=== PATIENT | male | born 1995 | race Caucasian/White ===

== ENCOUNTER 2022-03-08 09:55 | Emergency (ER) | payer MEDICARE, MEDICAID, SELFPAY ==
[2022-03-08 09:57] VITALS: BP 126/66; PULSE 77; RESP 18; TEMP 36.8; O2SAT 98
--- NOTE | 2022-03-08 09:59 | XR_ITS ---
WS: [id number] Exam: XR chest 1V portable [id number] Date/Time of Exam: 03/08/2022 10:04 AM Reason For Exam: dyspnea/cough No priors. Findings: The lungs are clear and fully expanded. Costophrenic angles are sharp. No infiltrates. Bronchovascula r relief appears normal. Cardiac silhouette is unremarkable. Bony elements are intact. XR/XR chest 1V portable [id number] IMPRESSION: Unremarkable chest radiograph.
--- NOTE | 2022-03-08 09:59 | ECG_ITS ---
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 Measurements Intervals [place] Rate: 69 P: 51 IL: 175 QRS: 50 QRSD: 92 T: 16 QT: 385 QTc: 413 Interpretive Statements SINUS RHYTHM No previous ECG available for comparison Electronically Signed On 03-08-2022 22:01:21 BROKE HANDLER by Ana Rosa Colin M.D. [id number]
[2022-03-08 10:00] VITALS: BP 123/74; PULSE 68
--- NOTE | 2022-03-08 10:05 | ED_ITS ---
HPI - Syncope General: Chief Complaint: Syncope Stated Complaint: Syncope Time Seen by Provider: 03/08/22 09:58 Source: patient Mode of arrival: ambulatory History of Present Illness: 26-year-old male who presents to the emergency room after an episode of syncope. He had a witnessed syncopal episode he fell to the floor. And been standing for period time talking to someone had an aura of getting lightheaded and dizzy and fell he does not sound like he had a postictal phase he remembers senior it business analyst and nurse around him talking about the episode. He states he had similar episodes when he was younger. He is not on any prescription medications, he does take [id number]-xtrabld melatonin. MD complaint: loss of consciousness and collapsed Onset (ago): minute(s) Prodromal symptoms: lightheaded Witnessed: Yes - by Bystander Context: other (While standing) Injuries sustained associated with event: none Associated symptoms: Deny abdominal pain, chest pain, fever(s), headache(s), lightheadedness, nausea, short of breath, vertigo or weakness Treatments prior to arrival: none Review of Systems Const: Denies: fever(s), chills, fatigue or malaise ENMT: Denies: throat pain, ear or mastoid pain, nasal discharge or nasal congestion Card: Denies: chest pain, palpitations, irregular heart rhythm, edema or lightheadedness Resp: Denies: dyspnea, productive cough or non-productive cough GI: Denies: abdominal pain, nausea or vomiting : Denies: flank pain, difficulty urinating, dysuria, urinary frequency or urinary urgency Skin/Breast: Denies: rash or pruritus Neuro: Denies: headache(s) or vertigo PFS ED PFSH: Medical History (Updated 03/08/22 @ 11:45 by Stefano Santiago DO) No significant past medical history Surgical History (Updated 03/08/22 @ 10:09 by Stefano Santiago DO) No pertinent past surgical history Social History Smoking and tobacco status: never smoked Physical Exam Const: COMMON NORMALS: no acute distress GENERAL APPEARANCE: cooperative and comfortable ORIENTATION/CONSCIOUSNESS: Yes awake, Yes oriented to person, Yes oriented to place and Yes oriented to time HENMT: COMMON NORMALS: normocephalic, atraumatic, hearing grossly normal bilaterally, external ears normal, EAC's normal, TM's normal bilaterally, Normal nasal mucous membranes and turbinates present, moist oral mucous membranes and oropharynx normal HEAD & SCALP: normocephalic and atraumatic NOSE: Normal nasal mucous membranes and turbinates present EXTERNAL EAR: Yes external ears normal EXTERNAL AUDITORY CANAL: EAC's normal TYMPANIC MEMBRANE: TM's normal bilaterally Eye: COMMON NORMALS: Equal, round and reactive pupils present, EOMs intact bilaterally, conjunctivae normal and no scleral icterus CONJUNCTIVA: Yes conjunctivae normal PUPIL: Yes Equal, round and reactive pupils present Neck/C-Spine: COMMON NORMALS: full ROM, no lymphadenopathy, supple and no JVD Resp: COMMON NORMALS: normal respiratory effort, No retractions, No use of accessory muscles and clear to auscultation bilaterally AUSCULTATION: clear to auscultation bilaterally Cardio: COMMON NORMALS: no JVD, regular rate, regular rhythm and No murmurs present (Cardio) RATE: regular rate RHYTHM: regular rhythm GI: COMMON NORMALS: Soft to palpation and No hepatosplenomegaly present AUSCULTATION: Yes normoactive bowel sounds PALPATION: Yes Soft to palpation, No Tenderness to palpation present (GI), No Guarding due to palpation present (GI) and Yes No hepatosplenomegaly present Extremity: COMMON NORMALS: normal to inspection, capillary refill normal, no clubbing, cyanosis or edema, no calf tenderness and no pedal edema Neuro: SENSORIUM/ORIENTATION: Yes oriented to person, Yes oriented to place and Yes oriented to time Skin: COMMON NORMALS: no rashes or lesions noted GENERAL SKIN EXAM: no rashes or lesions noted Course Vital Signs: Vital signs: Vital Signs Temperature 98.3 F 03/08/22 09:57 Pulse Rate 65 03/08/22 11:36 Respiratory Rate 18 03/08/22 11:32 Blood Pressure 120/74 03/08/22 11:36 Pulse Oximetry 98 03/08/22 11:32 Oxygen Delivery Me thod 03/08/22 11:32 MDM - Syncope Medical Decision Making Syncopal episode after fluids patient management ambulating on the difficulty vital signs normal orthostatics normal discharge patient home we will set up outpatient echocardiogram follow-up with primary care return if has further problems. Medical Records I reviewed the patient's medical records. Lab Data I reviewed the patient's lab results. 03/08/22 09:45 03/08/22 09:45 Radiology Impressions Chest X-Ray 03/08/22 09:59 IMPRESSION: Unremarkable chest radiograph. Laboratory Results WBC 6.5 10^3/uL (4.0-10.0) 03/08/22 09:45 RBC 5.31 10^6/uL (4.1-5.3) H 03/08/22 09:45 Hgb 15.2 g/dL (11.7-16.6) 03/08/22 09:45 Hct 47.3 % (42.0-52.0) 03/08/22 09:45 MCV 89.1 fl (80-94) 03/08/22 09:45 MCH 28.6 pg (28.0-34.0) 03/08/22 09:45 MCHC 32.1 g/dL (30.0-36.0) 03/08/22 09:45 RDW 13.4 % (12.1-15.1) 03/08/22 09:45 Plt Count 174 10^3/cmm (130-400) 03/08/22 09:45 MPV 12.3 fL (7.4-10.4) H 03/08/22 09:45 Neut % (Auto) 61.3 % 03/08/22 09:45 Lymph % (Auto) 26.1 % 03/08/22 09:45 Bill[place] % (Auto) 9.3 % 03/08/22 09:45 Eos % (Auto) 2.5 % 03/08/22 09:45 Baso % (Auto) 0.5 % 03/08/22 09:45 Neut # (Auto) 3.97 10^3/uL (1.8-7.7) 03/08/22 09:45 Lymph # (Auto) 1.7 10^3/uL (0.8-4.8) 03/08/22 09:45 [place] # (Auto) 0.6 10^3/uL (0.2-0.9) 03/08/22 09:45 Eos # (Auto) 0.2 10^3/uL (0.0-0.8) 03/08/22 09:45 Baso # (Auto) 0.0 10^3/uL (0.0-0.1) 03/08/22 09:45 Nucleated RBC % (auto) 0 % 03/08/22 09:45 Nucleated RBCs # 0.0 /100WBC 03/08/22 09:45 Sodium 138 mmol/L (136-145) 03/08/22 09:45 Potassium 4.7 mmol/L (3.5-5.1) 03/08/22 09:45 Chloride 102 mmol/L (98-107) 03/08/22 09:45 Carbon Dioxide 28 mmol/L (22-29) 03/08/22 09:45 Anion Gap 12.7 (5-19) 03/08/22 09:45 BUN 11 mg/dL (6-20) 03/08/22 09:45 Creatinine 0.8 mg/dL (0.7-1.2) 03/08/22 09:45 GFR Calculation 117.8 mL/min (90-130) 03/08/22 09:45 Glucose 110 mg/dL (65-115) 03/08/22 09:45 Calculated Osmolality 286 mOsm/kg (285-295) 03/08/22 09:45 Calcium 10.2 mg/dL (8.5-10.5) 03/08/22 09:45 Total Bilirubin 0.6 mg/dL (0.15-1.2) 03/08/22 09:45 AST 25 U/L (0-40) 03/08/22 09:45 ALT 26 U/L (0-41) 03/08/22 09:45 Alkaline Phosphatase 89 U/L (40-130) 03/08/22 09:45 Total Protein 7.8 g/dL (6.6-8.7) 03/08/22 09:45 Albumin 4.8 g/dL (3.5-5.2) 03/08/22 09:45 Globulin 3.0 g/dL (1.3-4.6) 03/08/22 09:45 Discharge Plan Discharge Patient Disposition: Home Clinical Impression: Syncopal episodes Condition: Stable Prescriptions: No Action No Known Home Medications methylprednisolone [Medrol (Naldo)] 4 mg tablets,dose pack See Rx Instructions PO PER PKG DIR Qty: 21 0RF Rx Instructions: PO PER PKG DIR Discharge Orders: Discharge ED (Routine); Ordered 03/08/22 Ordered By: Stefano Santiago Referrals: Margoth Simmons MD [Primary Care Provider] - Discharge Diet: Usual diet Discharge Activity: Increase activity as tolerated Patient Instructions: Opioid Safety, Pain Management Activity Restrictions/Additional Instructions: You were seen today for syncopal episode. Recommend that you follow-up with your primary care doctor within the next week. Your laboratory test done in the emergency room did not show any significant abnormalities. [facility] management will set up an outpatient echocardiogram. Coding Level of Care Code ED Trousseau Consultant for Chg Fwd Exam Comprehensive
[2022-03-08] MEDS: sodium chloride 0.9% 1,000 ML 999 ML IV (10:09)
[2022-03-08 10:40] LABS: Basophils % 0.5 %; Eosinophils # 0.2 10^3/uL (0.0-0.8); Eosinophils % 2.5 %; Hematocrit 47.3 % (42.0-52.0); Hemoglobin 15.2 g/dL (11.7-16.6); Lymphocytes # 1.7 10^3/uL (0.8-4.8); Lymphocytes % 26.1 %; Mean Corpuscular HGB Conc 32.1 g/dL (30.0-36.0); Mean Corpuscular Hemoglobin 28.6 pg (28.0-34.0); Mean Corpuscular Volume 89.1 fl (80-94); Mean Platelet Volume 12.3 fL (7.4-10.4); Monocytes # 0.6 10^3/uL (0.2-0.9); Monocytes % 9.3 %; Neutrophils # 3.97 10^3/uL (1.8-7.7); Neutrophils % 61.3 %; Nucleated Red Blood Cells % 0 %; Platelet Count 174 10^3/cmm (130-400); Red Blood Count 5.31 10^6/uL (4.1-5.3); Red Cell Distribution Width 13.4 % (12.1-15.1); White Blood Count 6.5 10^3/uL (4.0-10.0)
[2022-03-08 10:54] LABS: Alanine Aminotransferase 26 U/L (0-41); Albumin Level 4.8 g/dL (3.5-5.2); Alkaline Phosphatase 89 U/L (40-130); Anion Gap 12.7 (5-19); Aspartate Amino Transferase 25 U/L (0-40); Blood Urea Nitrogen 11 mg/dL (6-20); Calcium 10.2 mg/dL (8.5-10.5); Carbon Dioxide 28 mmol/L (22-29); Chloride 102 mmol/L (98-107); Glomerular Filtration Rate 117.8 mL/min (90-130); Glucose 110 mg/dL (65-115); Osmolality Calculated 286 mOsm/kg (285-295); Potassium 4.7 mmol/L (3.5-5.1); Sodium 138 mmol/L (136-145); Total Bilirubin 0.6 mg/dL (0.15-1.2); Total Protein 7.8 g/dL (6.6-8.7)
[2022-03-08 11:32] VITALS: BP 120/84; PULSE 68; RESP 18; O2SAT 98
[2022-03-08 11:35] VITALS: BP 114/83; PULSE 73
[2022-03-08 11:36] VITALS: BP 120/74; PULSE 65
--- NOTE | 2022-03-11 09:43 | DCPLANNER ---
Addendum entered by Kelly Robin 04/24/22 15:46: Patient had an echo scheduled - patient did attend appointment Addendum entered by Kelly Robin 03/11/22 13:52: Patients mother called case folder back, she told case folder that patient sees a primary care physician at [facility]. branch operation evaluation manager faxed a signed order to centralized scheduling, who will call patient with appointment information. Original Note: branch operation evaluation manager had message to schedule an outpatient echocardiogram. Patient does not have a primary care physician listed in his chart. branch operation evaluation manager called phone number [phone] - unable to speak with patient at this time, a voicemail was left for patient to return case operator phone call. branch operation evaluation manager is unable to schedule the echo due to not having a primary care physician.
== END 2022-03-08 12:16 | disposition home or self-care (01) ==
PROVIDERS: Emergency Provider Family Medicine; PCP Pediatrics Adolescent Medicine
DX: R55 Syncope and collapse (principal)
CPT/HCPCS: 71045; 80053; 85025; 93005; 96360; 99285; J7030

== ENCOUNTER 2022-04-15 14:53 | Outpatient (CLI) | payer MEDICARE, MEDICAID, SELFPAY ==
--- NOTE | 2022-04-15 15:07 | USCV_ITS ---
Brian Painter Age: 26 Gender: M : 1995 Exam Date: 04/15/2022 15:38 Ordering Phys: Stefano Santiago DO Technologist: Neal Rodriguez Exam Location: [facility] Indication: CHEST PAIN BP: 120 / 74 HR: 68 Rhythm: Sinus Technical Quality: Adequate MEASUREMENTS (Male / Female) Normal Values 2D ECHO LV Diastolic Diameter PLAX 5.4 cm 4.2 - 5.9 / 3.9 - 5.3 cm LV Systolic Diameter PLAX 3.3 cm IVS Diastolic Thickness 0.7 cm 0.6 - 1.0 / 0.6 - 0.9 cm IVS Systolic Thickness 1.1 cm LVPW Diastolic Thickness 1.2 cm 0.6 - 1.0 / 0.6 - 0.9 cm LVPW Systolic Thickness 2.0 cm LVOT Diameter 2.0 cm LV Ejection Fraction 2D Teich 68.4 % LV Ejection Fraction MOD 2C 65.3 % LV Ejection Fraction 2C AL 65.1 % LA Diameter 3.5 cm LA Width 4.1 cm LA Height 3.8 cm RA Width 3.5 cm RA Height 4.2 cm Aorta at Sinotubular Diameter 2.1 cm IVC Diameter 2.0 cm M-MODE Aortic Annulus Diameter 3.1 cm LA Ao Ratio MM 1.1 MV E Point Septal Separation 0.4 cm DOPPLER AV Peak Velocity 129.0 cm/s LVOT Peak Velocity 90.0 cm/s AV Area Cont Eq vti 1.9 cm squared AV Area Cont Eq pk 2.2 cm squared MV Peak Velocity 105.0 cm/s MV Area PHT 5.4 cm squared Mitral E to A Ratio 1.9 MV E' Velocity 46.0 cm/s Mitral E to MV E' Ratio 5.6 Mitral E to LV E' Lateral Ratio 4.9 Mitral E to LV E' Septal Ratio 6.4 Right Atrial Pressure 3.0 mmHg PV Peak Velocity 110.0 cm/s RV Acceleration Time 0.2 s RV Ejection Time 0.3 s RV AcT/ET 0.5 FINDINGS Left Ventricle Normal left ventricular size, systolic function and wall thickness, with no regional wall motion abnormalities. Normal left ventricular wall thickness. Normal diastolic filling pattern. Left ventricular ejection fraction is estimated at 60 %. Right Ventricle The right ventricle is normal in size and function. Right Atrium The right atrium is normal in size. Left Atrium The left atrium is normal in size. Mitral Valve Structurally normal mitral valve without significant stenosis or prolapse. There is no mitral regurgitation. Aortic Valve Structurally normal aortic valve without significant sclerosis or stenosis. There is no aortic regurgitation. Tricuspid Valve Structurally normal tricuspid valve without significant stenosis or regurgitation. Pulmonary artery systolic pressure is normal. Pulmonic Valve Structurally normal pulmonic valve without significant stenosis. There is no pulmonic regurgitation. Pericardium Normal pericardium without effusion. Aorta Normal ascending aorta dimension. IVC The inferior vena cava appears normal. CONCLUSIONS Normal transthoracic echocardiogram. There are no prior echocardiogram studies to compare. Dr. Kobe Dobson MD (Electronically Signed) Final Date: 15 April 2022 20:22 S
== END 2022-04-15 14:54 | disposition home or self-care (01) ==
LOC: RAD 15:02
PROVIDERS: PCP Pediatrics Adolescent Medicine; Visit Provider Family Medicine
DX: R07.9 Chest pain, unspecified (principal)
CPT/HCPCS: 93306

== ENCOUNTER → 2023-10-27 16:48 | Outpatient (BNVA) | payer MEDICARE, MEDICAID, SELFPAY | PROVIDERS: PCP Pediatrics Adolescent Medicine; Visit Provider Family Medicine | DX: S69.92XA Unspecified injury of left wrist, hand and finger(s), initial encounter (principal); X58.XXXA Exposure to other specified factors, initial encounter; R52 Pain, unspecified | CPT/HCPCS: 73110 ==

== ENCOUNTER 2024-11-25 20:27 | Inpatient (IN) | payer MEDICARE, MEDICAID, SELFPAY ==
[2024-11-25 20:28] VITALS: BP 142/82; PULSE 97; RESP 18; TEMP 37.2; O2SAT 93; BMI 38.0
--- OUTSIDE RECORDS SUMMARY | 2024-11-25 20:38 | XMS_ITS | Encounter Summary ---
Author Organization [facility] Address [address] [place] [address] Care Team Providers Care Hand Tire Trimmer Name Role Phone Unavailable Primary Care Provider Unavailabl e Encounter Details Date Type Department Care Team (Latest Contact Info) Description 04/20/2001 Outpatient Historical [facility] Pediatric Neurology-Emiliano [address] [place] [address] [place] [address] [facility] [address] [place] [address] TREMOR NEC (Primary Dx); INADEQUATE DEVELOPMENT, UNSPEC Social History Tobacco Use Types Packs/Day Years Used Date Smoking Tobacco: Never Assessed Sex and Gender Information Value Date Recorded Sex Assigned at Not on file 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
--- OUTSIDE RECORDS SUMMARY | 2024-11-25 20:38 | XMS_ITS | Clinical Summary ---
Author Organization [facility] Address [address] Attn: [place] [address] Care Team Providers Care Truck And Transport Mechanic Name Role Phone Unavailable Primary Care Provider Unavailabl e Immunizations Immunization Administration Dates Next Due (M-M-R II/PRIORIX)(12 MO UP) MEASLES, MUMPS AND RUBELLA VIRUS VACCINE, 0.5 ML IM/SUBCUT 04/10/2001,12/06/1997 Dt Dtp Dtap Vaccine 04/10/2001,12/06/1997,1996 HIB, Unspecified Formulation 12/06/1997, 1996,1996,1996 IPV/OPV 04/10/2001, 8,1996,1996 Social History Tobacco Use Types Packs/Day Years Used Date Smoking Tobacco: Never Assessed Sex and Gender Information Value Date Recorded Sex Assigned at Not on file 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
--- OUTSIDE RECORDS SUMMARY | 2024-11-25 20:38 | XMS_ITS | Encounter Summary ---
Author Organization [email or web address] Address [address] [facility] 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
--- OUTSIDE RECORDS SUMMARY | 2024-11-25 20:38 | XMS_ITS | Encounter Summary ---
Author Organization [facility] Address [address] [place] [address] Care Team Providers Care White Goods Appliance Tech Name Role Phone Unavailable Primary Care Provider Unavailabl e Encounter Details Date Type Department Care Team (Latest Contact Info) Description 11/17/2001 Outpatient Historical [facility] [address] [place] [address] Hugh Mattson III, MD [address] [place] [address] Contracture of tendon (Primary Dx) Social History Tobacco Use Types Packs/Day Years Used Date Smoking Tobacco: Never Assessed Sex and Gender Information Value Date Recorded Sex Assigned at Not on file 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
--- OUTSIDE RECORDS SUMMARY | 2024-11-25 20:38 | XMS_ITS | Encounter Summary ---
Author Organization [facility] Address [address] [place] [address] Care Team Providers Care Automobile Spring Repairer Name Role Phone Unavailable Primary Care Provider Unavailabl e Encounter Details Date Type Department Care Team (Latest Contact Info) Description 01/21/2003 Outpatient Historical [facility] Orthopedics- 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
--- OUTSIDE RECORDS SUMMARY | 2024-11-25 20:38 | XMS_ITS | Encounter Summary ---
Author Organization [facility] Address [address] [place] [address] Care Team Providers Care Sand Miller Name Role Phone Unavailable Primary Care Provider Unavailabl e Encounter Details Date Type Department Care Team (Latest Contact Info) Description 04/28/2001 Outpatient Historical [facility] [address] [place] [address] Hugh Mattson III, MD [address] [place] [address] Contracture of tendon (Primary Dx) Social History Tobacco Use Types Packs/Day Years Used Date Smoking Tobacco: Never Assessed Sex and Gender Information Value Date Recorded Sex Assigned at Not on file 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
--- OUTSIDE RECORDS SUMMARY | 2024-11-25 20:38 | XMS_ITS | Encounter Summary ---
Author Organization [facility] Address [address] [place] [address] Care Team Providers Care Fruit Sorter Name Role Phone Unavailable Primary Care Provider Unavailabl e Encounter Details Date Type Department Care Team (Latest Contact Info) Description 04/14/2001 Outpatient Historical [facility] Gen Spec 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
--- OUTSIDE RECORDS SUMMARY | 2024-11-25 20:38 | XMS_ITS | Encounter Summary ---
Author Organization [facility] Address [address] [place] [address] Care Team Providers Care Customer Experience Analyst Name Role Phone Unavailable Primary Care Provider Unavailabl e Encounter Details Date Type Department Care Team (Latest Contact Info) Description 09/18/2004 Outpatient Historical [facility] Orthopedics- 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
--- NOTE | 2024-11-25 20:42 | W.ED.PSYCHS ---
HPI - Psych General: Chief Complaint: Psychiatric Symptoms Stated Complaint: SI Time Seen by Provider: 11/25/24 20:29 Source: patient and police Mode of arrival: ambulatory Limitations: no limitations History of Present Illness: 29-year-old male presents here with police for suicidal ideation. Patient states he has been very depressed he has a plan to kill himself by overdose. Patient is not currently on any psych meds denies any previous psych admissions he denies any previous suicide attempts. Associated symptoms: Reports depression and suicidal ideation Related Data Previous Rx's ?Medication ?Instructions ?Recorded cetirizine 10 mg capsule (Zyrtec) 10 mg PO DAILY allergy symptoms 06/02/22 #30 caps fluticasone propionate 50 2 spray intranasal DAILY #16 grams 03/08/24 mcg/actuation nasal spray,suspension (Children's Flonase Allergy Relief) Allergies Allergy/AdvReac Type Severity Reaction Status Date / Time No Known Allergies Allergy Verified 03/08/24 17:02 Review of Systems Psych: Reports: depression and suicidal ideation [facility] ED PFSH: Medical History No significant past medical history Surgical History No pertinent past surgical history Social History Smoking and tobacco/nicotine status: never used tobacco/nicotine Physical Exam Const: COMMON NORMALS: no acute distress, patient oriented x3 and healthy appearing HENMT: COMMON NORMALS: normocephalic and atraumatic HEAD & SCALP: normocephalic and atraumatic Eye: COMMON NORMALS: conjunctivae normal CONJUNCTIVA: Yes conjunctivae normal Neck/C-Spine: COMMON NORMALS: full ROM and supple Chest: COMMONS NORMALS: normal inspection of the chest Resp: COMMON NORMALS: normal respiratory effort Cardio: COMMON NORMALS: regular rate, regular rhythm and No murmurs present (Cardio) RATE: regular rate RHYTHM: regular rhythm Extremity: COMMON NORMALS: normal to inspection and full ROM Neuro: COMMON NORMALS: patient oriented x3, moves all extremities and no focal motor deficits Psych: COMMON NORMALS: mental status grossly normal, Normal thought process present and cooperative MOOD & AFFECT: Yes depressed mood THOUGHT PROCESS: Normal thought process present THOUGHT CONTENT: Yes Suicidality present Skin: COMMON NORMALS: no rashes or lesions noted and no wounds GENERAL SKIN EXAM: no rashes or lesions noted MDM - Psych Medical Decision Making Patient presents for suicidal ideation he is brought in by police who filled out an affidavit. He does admit to me that he is suicidal with a plan of overdose. He denies taking any pills he has no signs of overdose here no drug or alcohol use. Patient's vitals here are normal lab work was reviewed and is normal as well he is medically cleared he is on a 96-hour hold I spoke to psychiatrist Dr. Sam who will admit at this time. Medical Records I reviewed the patient's medical records. Lab Data I reviewed the patient's lab results. 11/25/24 20:42 11/25/24 20:42 Laboratory Results WBC 9.37 10^3/uL (3.29-11.43) 11/25/24 20:42 RBC 4.88 10^6/uL (3.85-5.65) 11/25/24 20:42 Hgb 14.10 g/dL (11.27-16.99) 11/25/24 20:42 Hct 42.9 % (37-53) 11/25/24 20:42 MCV 87.9 fl (82-101) 11/25/24 20:42 MCH 28.9 pg (27-33) 11/25/24 20:42 MCHC 32.9 g/dL (30-55) 11/25/24 20:42 RDW 12.9 % (12.1-15.1) 11/25/24 20:42 Plt Count 294 10^3/cmm (157-399) 11/25/24 20:42 MPV 10.9 fL (7.4-10.4) H 11/25/24 20:42 Neut % (Auto) 67.2 % 11/25/24 20:42 Lymph % (Auto) 20.8 % 11/25/24 20:42 [place] % (Auto) 9.6 % 11/25/24 20:42 Eos % (Auto) 1.7 % 11/25/24 20:42 Baso % (Auto) 0.4 % 11/25/24 20:42 Neut # (Auto) 6.29 10^3/uL (1.8-7.7) 11/25/24 20:42 Lymph # (Auto) 2.0 10^3/uL (0.8-4.8) 11/25/24 20:42 [place] # (Auto) 0.9 10^3/uL (0.2-0.9) 11/25/24 20:42 Eos # (Auto) 0.2 10^3/uL (0.0-0.8) 11/25/24 20:42 Baso # (Auto) 0.0 10^3/uL (0.0-0.1) 11/25/24 20:42 Nucleated RBC % (auto) 0 % 11/25/24 20:42 Nucleated RBCs # 0.0 /100WBC 11/25/24 20:42 Sodium 144 mmol/L (136-145) 11/25/24 20:42 Potassium 3.8 mmol/L (3.5-5.1) 11/25/24 20:42 Chloride 105 mmol/L (98-107) 11/25/24 20:42 Carbon Dioxide 24 mmol/L (22-29) 11/25/24 20:42 Anion Gap 18.8 (5-19) 11/25/24 20:42 BUN 14 mg/dL (6-20) 11/25/24 20:42 Creatinine 0.9 mg/dL (0.7-1.2) 11/25/24 20:42 GFR Calculation 100.5 mL/min (90-130) 11/25/24 20:42 Glucose 110 mg/dL (65-115) 11/25/24 20:42 Calcium 9.4 mg/dL (8.5-10.5) 11/25/24 20:42 Total Bilirubin 0.2 mg/dL (0.15-1.2) 11/25/24 20:42 AST 18 U/L (0-40) 11/25/24 20:42 ALT 30 U/L (0-41) 11/25/24 20:42 Alkaline Phosphatase 95 U/L (40-130) 11/25/24 20:42 Total Protein 7.9 g/dL (6.6-8.7) 11/25/24 20:42 Albumin 4.7 g/dL (3.5-5.2) 11/25/24 20:42 Globulin 3.2 g/dL (1.3-4.6) 11/25/24 20:42 Urine Opiates Screen Negative ng/mL (Negative) 11/25/24 20:40 Ur Barbiturates Screen Negative ng/mL (Negative) 11/25/24 20:40 Ur Phencyclidine Scrn Negative ng/mL (Negative) 11/25/24 20:40 Ur Amphetamines Screen Negative ng/mL (Negative) 11/25/24 20:40 U Benzodiazepines Scrn Negative ng/mL (Negative) 11/25/24 20:40 Urine Cocaine Screen Negative ng/mL (Negative) 11/25/24 20:40 U Marijuana (THC) Screen Negative ng/mL (Negative) 11/25/24 20:40 No radiology studies performed this visit Discharge Plan Discharge Patient Disposition: Admitted As Inpatient Clinical Impression: Suicidal ideation Condition: Stable Coding Level of Care Code ED Photographic Engineer for Mikel Mckenna
--- NOTE | 2024-11-25 20:52 | PC.NURSE ---
96 Hour Involuntary Hold Patient Rights have been reviewed with the patient and a copy of the same has been provided to him. Caustic Room Operator Jenise Oconnor was present at chairside during the time of presentation of Rights.
[2024-11-25 20:54] LABS: PCP Screen Urine Negative (Negative)
[2024-11-25 21:09] LABS: Hematocrit 42.9 % (37-53); Hemoglobin 14.10 g/dL (11.27-16.99); Mean Corpuscular HGB Conc 32.9 g/dL (30-55); Mean Corpuscular Hemoglobin 28.9 pg (27-33); Mean Corpuscular Volume 87.9 fl (82-101); Nucleated Red Blood Cells % 0 %; Platelet Count 294 10^3/cmm (157-399); Red Blood Count 4.88 10^6/uL (3.85-5.65); White Blood Count 9.37 10^3/uL (3.29-11.43)
[2024-11-25 21:11] LABS: Alanine Aminotransferase 30 U/L (0-41); Albumin Level 4.7 g/dL (3.5-5.2); Alkaline Phosphatase 95 U/L (40-130); Anion Gap 18.8 (5-19); Aspartate Amino Transferase 18 U/L (0-40); Blood Urea Nitrogen 14 mg/dL (6-20); Calcium 9.4 mg/dL (8.5-10.5); Carbon Dioxide 24 mmol/L (22-29); Chloride 105 mmol/L (98-107); Creatinine Clr Calc Pharmacy 149.3320; Globulin 3.2 g/dL (1.3-4.6); Glucose 110 mg/dL (65-115); Osmolality Calculated 299 mOsm/kg (285-295); Potassium 3.8 mmol/L (3.5-5.1); Sodium 144 mmol/L (136-145); Total Protein 7.9 g/dL (6.6-8.7)
[2024-11-25 21:14] LABS: Acetaminophen < 5.0 ug/mL (10-30); Alcohol Level < 10 mg/dL (0-10); Salicylate < 0.3 mg/dL (3-10)
[2024-11-25 22:31] VITALS: BP 141/85; PULSE 71; RESP 16; TEMP 37.6; O2SAT 96
[2024-11-26 06:00] VITALS: BP 119/73; PULSE 72; RESP 16; TEMP 37; O2SAT 98
--- NOTE | 2024-11-26 07:44 | P.NPUHP_ITS ---
Providers/Chief Complaint 2 Admitting Physician: Manny Sam MD Primary Care Provider: Margoth Simmons MD Chief Complaint: SI HPI NPU History of Present Illness Brian Painter is a 29 year old male presented to the emergency department with the following report: Chief Complaint: Psychiatric Symptoms Stated Complaint: SI Time Seen by Provider: 11/25/24 20:29 Source: patient and police Mode of arrival: ambulatory Limitations: no limitations History of Present Illness: 29-year-old male presents here with police for suicidal ideation. Patient states he has been very depressed he has a plan to kill himself by overdose. Patient is not currently on any psych meds denies any previous psych admissions he denies any previous suicide attempts. Associated symptoms: Reports depression and suicidal ideation. He was admitted to the neuropsychiatric unit for definitive treatment of those issues. He is unknown to [facility] psychiatry through inpatient or outpatient services. He presented to the emergency department with a negative UDS and an unremarkable BAL reporting: Chief complaint Presented to the hospital following a conflict with her mother and subsequent thoughts of self-harm, including consideration of overdosing on melatonin. History of the present complaint Reported an argument with mother after disclosing to someone that was carrying, which was misinterpreted as expressing suicidal intent. Upon returning home, mother became upset and physically searched for means of self- harm, leading to increased distress. Requested to be left alone, but mother persisted, resulting in further escalation. Decided to leave home, packed belongings, and went to the police station. Contemplated overdosing on melatonin prior to arrival at the police station, where was advised to seek evaluation for depression. Described onset of depression following the of sister in 2020, who by suicide. Found sister in the garage, which was a traumatic event. Since then, has experienced persistent sadness, feelings of helplessness, hopelessness, and worthlessness. Endorsed passive wishes, stating if I don't wake up tomorrow, that's fine, and reported several episodes of suicidal ideation, but denied any suicide attempts. Admitted to a single episode of self- injurious behavior, performed intentionally, but denied a pattern of such behavior. Reported chronic anxiety, characterized by constant worry and discomfort around other people. Described longstanding difficulty being around crowds and persistent fear that others may intend harm, including fear while sleeping that someone may be present to hurt. Endorsed paranoia, including checking behind doors and feeling that someone is out to get. Described visual hallucinations, specifically seeing sister sitting on a bed and shaking her head in disapproval, occurring the previous night and in other locations. Reported recurrent nightmares and flashbacks related to traumatic events, including reliving moments prior to discovering sister's . Noted development of compulsive behaviors since 2020, such as needing to arrange jez controllers in a specific order (PS3 to PS4), which causes significant distress if not maintained. Described lifelong difficulty with attention and focus, stating inability to concentrate even when desired. Noted need to move frequently, such as during oriental orthodox services, to avoid distress. Reported history of speech therapy and placement in special education during childhood, with possible IEP. 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 Family history notable for sister with depression and possible addiction issues, and father described as a heavy drinker. Reported father's in 2001, possibly by suicide, but not certain. Denied tobacco, alcohol, cannabis, or other illicit drug use, and stated intent to keep body clean. No prior psychiatric hospitalizations, outpatient mental health treatment, or use of psychiatric medications. 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 Described family structure as youngest of multiple half-siblings on both maternal and paternal sides, with limited contact with paternal relatives. Mental health history Had onset of depressive symptoms following sister?s in May 2020, including persistent sadness, helplessness, hopelessness, passive suicidal ideation and occasional active suicidal thoughts without attempts. Denies prior psychiatric hospitalizations, outpatient counseling or therapy, and use of antidepressant, anxiolytic or other psychotropic medications. Reports chronic worry, social anxiety and paranoid ideation predating 2020. Notes emergence of ritualistic behaviors and need for order (e.g., arranging game controllers) since 2020. No history of self?injurious behavior beyond isolated incidents. Epilepsy in tile machine operator required bracing and walker use and speech therapy, but no diagnosed neurodevelopmental disorders. Social history Mother remains primary familial contact; parents were not together at . Identified four maternal half-siblings (two brothers, two sisters) and two paternal half-brothers, with self as the youngest of six. Denies tobacco or nicotine use, alcohol use, cannabis use, and other illicit drug use. Attempts to keep body clean. Meds NPU Home Medications ?Medication ?Instructions ?Recorded ?Confirmed ?Last Taken ?Type No Known Home Medications 11/25/2411/10 Unknown History Allergies Allergy/AdvReac Type Severity Reaction Status Date / Time No Known Allergies Allergy Verified 03/08/24 17:02 PFSH NPU 2 PFS: Medical History (Updated 11/27/24 @ 06:36 by Manny Sam MD) No significant past medical history Surgical History No pertinent past surgical history Social History Smoking and tobacco/nicotine status: never used tobacco/nicotine Mental Status Exam 2 MSE Comments: This is an obese white male in hospital scrubs with limited grooming and eye contact. No abnormal movements except for psychomotor retardation. Cooperative with exam in mild to moderate distress. Speech was slightly decreased rate and volume. Mood described as depressed, affect congruent. Thought process linear. Thought content: Patient endorsed suicidal but denied homicidal ideation, he endorsed paranoia and he did appear guarded and he did not appear to be attending to internal stimuli and denied auditory or visual hallucinations. Reports thoughts about overdosing on melatonin and has had a few instances of feeling suicidal but has not acted on these thoughts. Experiences visual hallucinations, seeing their sister sitting on another bed. Worries constantly and is uncomfortable around others, fearing harm at night. Has been experiencing depression since the loss of their sister in 2020, with associated sadness, feelings of helplessness, hopelessness, and worthlessness. Difficulty with attention and focus is noted. The loss of the sister is a significant stressor. Attention and concentration were intact and memory appeared reliable but none were formally tested. He is alert and oriented times 3. Insight and judgment appear fair and impulse control is impaired. Vitals/I&O/Wt Last Vital Signs Temp 98.6 F 11/26/24 06:00 Pulse 72 11/26/24 06:00 Resp 16 11/26/24 06:00 BP 119/73 11/26/24 06:00 Pulse Ox 98 11/26/24 06:00 O2 Del Method Room Air 11/26/24 06:00 11/25/24 11/26/24 11/26/24 22:59 06:59 14:59 Intake Total 0 / 0 Balance 0 / 0 Weight last 48 hrs Weight 113.398 kg Data NPU 11/25/24 20:42 11/25/24 20:42 A&P Assessment and plan 1. Suicidal ideation: 2. PTSD (post-traumatic stress disorder): 3. Depression: Plan: This is a 29-year-old white male with a long history of mental health challenges and psychosocial issues who presented reporting feeling suicidal and not being on medication. Depression secondary to bereavement following sister's suicide in November 2020. Intermittent suicidal ideation and passive wish reported. History of self-injurious behavior without established pattern. Chronic anxiety with social avoidance and persistent worry. Paranoid ideation present. Visual hallucinations of sister noted. Post-traumatic symptoms including nightmares and flashbacks related to traumatic event. Compulsive behaviors regarding arrangement of objects developed after 2020. Attention and focus difficulties present since childhood. 1. Initiate Prozac 20 mg p.o. daily. Will consider Abilify for mood stabilization. 2. Continue every 15 minute checks for safety. 3. Encourage individual, group and milieu therapy. 4. Obtain collateral information. 5. Observe against the backdrop of the 96-hour hold. PDMP PDMP Reviewed: Not Reviewed Involuntary Hold Information 2 Hold Status: Legal Status: 96 Hour Hold Date/Time Hold Expires: 12/01/24 @2034 Attestations NPU 2 Medical Necessity Statement*: Inpatient hospitalization is medically necessary and the clinically appropriate intervention at this time. We will monitor/initiate medications and make changes as indicated. Patient will be in the hospital for over two midnights. Likely length of stay 3-5 days. Coding Level of Care Code Acute Code for [facility] Fwd Diagnoses Suicidal ideation R45.851 PTSD (post-traumatic stress disorder) F43.10 Depression F32.A
[2024-11-26 14:00] VITALS: BP 131/77; PULSE 66; RESP 16; TEMP 37.1; O2SAT 97
[2024-11-26 20:54] VITALS: BP 144/78; PULSE 80; RESP 18; TEMP 36.3; O2SAT 96
[2024-11-27 06:00] VITALS: BP 121/74; PULSE 69; RESP 18; TEMP 37; O2SAT 97
--- NOTE | 2024-11-27 09:01 | P.NPUPN_ITS ---
Subjective NPU 2 Subjective: Patient presented today reporting that he is doing fine with the Prozac. We discussed working with the social work team on Friday towards follow-up and that Dr. Mendenhall would be here tomorrow to continue to look at his treatment and consider whether adding a mood stabilizer would be appropriate. He denied any side effects to the medication. Mental Status Exam 2 MSE Comments: This is an obese white male in hospital scrubs with limited grooming and eye contact. No abnormal movements except for psychomotor retardation. Cooperative with exam in mild to moderate distress. Speech was slightly decreased rate and volume. Mood described as depressed, affect congruent. Thought process linear. Thought content: Patient endorsed suicidal but denied homicidal ideation, he endorsed paranoia and he did appear guarded and he did not appear to be attending to internal stimuli and denied auditory or visual hallucinations. Reports thoughts about overdosing on melatonin and has had a few instances of feeling suicidal but has not acted on these thoughts. Experiences visual hallucinations, seeing their sister sitting on another bed. Worries constantly and is uncomfortable around others, fearing harm at night. Has been experiencing depression since the loss of their sister in 2020, with associated sadness, feelings of helplessness, hopelessness, and worthlessness. Difficulty with attention and focus is noted. The loss of the sister is a significant stressor. Attention and concentration were intact and memory appeared reliable but none were formally tested. He is alert and oriented times 3. Insight and judgment appear fair and impulse control is impaired. Vitals/I&O/Wt Last Vital Signs Temp 98.6 F 11/27/24 06:00 Pulse 69 11/27/24 06:00 Resp 18 11/27/24 06:00 BP 121/74 11/27/24 06:00 Pulse Ox 97 11/27/24 06:00 O2 Del Method Room Air 11/27/24 06:00 Weight last 48 hrs Weight 113.398 kg Data NPU 11/25/24 20:42 11/25/24 20:42 A&P Assessment and plan 1. Suicidal ideation: 2. PTSD (post-traumatic stress disorder): 3. Depression: Plan: This is a 29-year-old white male with a long history of mental health challenges and psychosocial issues who presented reporting feeling suicidal and not being on medication. Depression secondary to bereavement following sister's suicide in November 2020. Intermittent suicidal ideation and passive wish reported. History of self-injurious behavior without established pattern. Chronic anxiety with social avoidance and persistent worry. Paranoid ideation present. Visual hallucinations of sister noted. Post-traumatic symptoms including nightmares and flashbacks related to traumatic event. Compulsive behaviors regarding arrangement of objects developed after 2020. Attention and focus difficulties present since childhood. 1. Initiated Prozac 20 mg p.o. daily. Will consider Abilify for mood stabilization. 2. Continue every 15 minute checks for safety. 3. Encourage individual, group and milieu therapy. 4. Obtain collateral information. 5. Observe against the backdrop of the 96-hour hold. PDMP PDMP Reviewed: Not Reviewed Involuntary Hold Information 2 Hold Status: Legal Status: 96 Hour Hold Date/Time Hold Expires: 12/01/24 @2034 Attestations NPU 2 Medical Necessity Statement*: Inpatient hospitalization is medically necessary and the clinically appropriate intervention at this time. We will monitor/initiate medications and make changes as indicated. Likely length of stay 2-4 days. Coding Level of Care Code Acute Code for [facility] Fwd Diagnoses Suicidal ideation R45.851 PTSD (post-traumatic stress disorder) F43.10 Depression F32.A
[2024-11-27 14:00] VITALS: BP 134/90; PULSE 82; RESP 18; TEMP 36.6; O2SAT 96
--- NOTE | 2024-11-27 14:44 | PC.NURSE ---
Dr. Sam gave verbal order to start Prozac 20mg PO QD.
[2024-11-27 21:37] VITALS: BP 150/80; PULSE 76; RESP 18; TEMP 36.4; O2SAT 98
[2024-11-27 21:43] VITALS: BMI 37.3
[2024-11-28 06:00] VITALS: BP 113/71; PULSE 73; RESP 18; TEMP 36.4; O2SAT 96
--- NOTE | 2024-11-28 13:04 | P.NPUPN_ITS ---
Subjective NPU 2 Subjective: 29-year-old male admitted with suicidal ideation with reports of struggles with flashbacks and frequent nightmares along with avoidance of places that reminded him of the trauma associated with finding his sister . He reported having problems with anxiety. He reported isolating himself. He reported having limited social engagement with others. He had stated that he had been diagnosed previously with autistic like traits. He reported restricted areas of interest including videogames. He reported that he was currently not working. Patient had reported that he was not receiving any psychotherapy. He had endorsed no feelings of hopelessness now. The patient had reported that melatonin had gave him more nightmares and made him more depressed when taking it on an outpatient basis. He had reported that he was serious about overdosing on his medications in order to kill himself. Mental Status Exam 2 MSE Comments: This is an obese white male in hospital scrubs with limited grooming and eye contact. No abnormal movements except for psychomotor retardation. He was cooperative with exam in mild distress. His speech was slightly decreased in rate and normal in volume and monotone in quality.. His mood was described as depressed. His affect was mood congruent and flat. His thought process was linear and logical. Thought content: Patient endorsed suicidal but denied homicidal ideation, He endorsed paranoia and he did appear guarded and he did not appear to be attending to internal stimuli and denied auditory or visual hallucinations. Experiences visual hallucinations, seeing their sister sitting on another bed. Worries constantly and is uncomfortable around others, fearing harm at night. Has been experiencing depression since the loss of their sister in 2020, with associated sadness, feelings of helplessness, hopelessness, and worthlessness. Difficulty with attention and focus is noted. The loss of the sister is a significant stressor. Attention and concentration were intact and memory appeared reliable but none were formally tested. He is alert and oriented times 3. Insight and judgment appear fair and impulse control is impaired. Vitals/I&O/Wt Last Vital Signs Temp 97.6 F 11/28/24 06:00 Pulse 73 11/28/24 06:00 Resp 18 11/28/24 06:00 BP 113/71 11/28/24 06:00 Pulse Ox 96 11/28/24 06:00 O2 Del Method Room Air 11/28/24 06:00 O2 Flow Rate 2 11/27/24 14:00 Weight last 48 hrs Weight 111.244 kg Data NPU 11/25/24 20:42 11/25/24 20:42 A&P Assessment and plan 1. Suicidal ideation: 2. PTSD (post-traumatic stress disorder): 3. Depression: Plan: This is a 29-year-old white male with a long history of mental health challenges and psychosocial issues who presented reporting feeling suicidal and not being on medication. Depression secondary to bereavement following sister's suicide in November 2020. Intermittent suicidal ideation and passive wish reported. History of self-injurious behavior without established pattern. Chronic anxiety with social avoidance and persistent worry. Paranoid ideation present. Visual hallucinations of sister noted. Post-traumatic symptoms including nightmares and flashbacks related to traumatic event. Compulsive behaviors regarding arrangement of objects developed after 2020. Attention and focus difficulties present since childhood. 1. Continue Prozac 20 mg p.o. daily. Will consider Abilify for mood stabilization. RAADS to be completed for further evaluation regarding autism. 2. Continue every 15 minute checks for safety. 3. Encourage individual, group and milieu therapy. 4. Obtain collateral information. 5. Observe against the backdrop of the 96-hour hold. PDMP PDMP Reviewed: Not Reviewed Involuntary Hold Information 2 Hold Status: Legal Status: 96 Hour Hold Date/Time Hold Expires: 12/01/24 @2034 Attestations NPU 2 Medical Necessity Statement*: Inpatient hospitalization is medically necessary and the clinically appropriate intervention at this time. We will monitor/initiate medications and make changes as indicated. The patient's likely length of stay is 2-4 days. Coding Level of Care Code Acute Code for [facility] Fwd Diagnoses Suicidal ideation R45.851 PTSD (post-traumatic stress disorder) F43.10 Depression F32.A
[2024-11-28 13:59] VITALS: BP 115/74; PULSE 76; RESP 16; TEMP 37.1; O2SAT 98
[2024-11-28 22:00] VITALS: BP 150/91; PULSE 77; RESP 18; TEMP 36.5; O2SAT 98
[2024-11-29 06:00] VITALS: BP 112/66; PULSE 64; RESP 18; TEMP 36.6; O2SAT 97
[2024-11-29 13:55] VITALS: BP 120/76; PULSE 71; RESP 16; TEMP 36.6; O2SAT 95
--- NOTE | 2024-11-29 14:36 | P.NPUPN_ITS ---
Subjective NPU 2 Subjective: 29-year-old male admitted with suicidal ideation with reports of struggles with flashbacks and frequent nightmares along with avoidance of places that reminded him of the trauma associated with finding his sister . The patient had reported no hallucinations currently. He reported that he continued to feel depressed but was not having as intense thoughts of being depressed. He reported no suicidal ideation. He had reported no recent flashbacks regarding his sister's . He reported that he had struggled with relating to others. He had reported having struggles with maintaining a job. He reported that he had previously worked at [employer] for 3 years but stated that his previous boss had disagreed with him regarding his latter day beliefs and he was forced to leave the job. He reports that he currently lives with his mother and is not on disability at this time. He had denied any hypervigilance. Mental Status Exam 2 MSE Comments: This is an obese , odd white male in hospital scrubs with limited grooming and fleeting eye contact. No abnormal involuntary motor movements were appreciated other than mild psychomotor retardation. He was cooperative with exam in mild distress. His speech was slightly decreased in rate and normal in volume and monotone in quality.. His mood was described as okay. His affect was mood incongruent and flat. His thought process was linear and logical. Thought content: Patient endorsed no suicidal or homicidal ideation, He denied paranoia and he did appear guarded and he did not appear to be attending to internal stimuli and denied auditory or visual hallucinations. He had reported anxiety in social situations. Has been experiencing depression since the loss of their sister in 2020, with associated sadness, feelings of helplessness, hopelessness, and worthlessness. Difficulty with attention and focus is noted. The loss of the sister is a significant stressor. Attention and concentration were intact and memory appeared reliable but none were formally tested. He is alert and oriented times 3. Insight and judgment appear fair and impulse control is impaired. Vitals/I&O/Wt Last Vital Signs Temp 97.9 F 11/29/24 13:55 Pulse 71 11/29/24 13:55 Resp 16 11/29/24 13:55 BP 120/76 11/29/24 13:55 Pulse Ox 95 11/29/24 13:55 O2 Del Method Room Air 11/29/24 13:55 O2 Flow Rate 2 11/27/24 14:00 Weight last 48 hrs Weight 111.244 kg Data NPU 11/25/24 20:42 11/25/24 20:42 A&P Assessment and plan 1. Depression: 2. Suicidal ideation: 3. PTSD (post-traumatic stress disorder): Plan: This is a 29-year-old white male with a long history of mental health challenges and psychosocial issues who presented reporting feeling suicidal and not being on medication. Depression secondary to bereavement following sister's suicide in November 2020. Intermittent suicidal ideation and passive wish reported. History of self-injurious behavior without established pattern. Chronic anxiety with social avoidance and persistent worry. Paranoid ideation present. Visual hallucinations of sister noted. Post-traumatic symptoms including nightmares and flashbacks related to traumatic event. Compulsive behaviors regarding arrangement of objects developed after 2020. Attention and focus difficulties present since childhood. 1. Continue Prozac 20 mg p.o. daily. Add Abilify 2mg daily for mood stabilization. RAADS to be completed today. 2. Continue every 15 minute checks for safety. 3. Encourage individual, group and milieu therapy. 4. Obtain collateral information. 5. Observe against the backdrop of the 96-hour hold. PDMP PDMP Reviewed: Not Reviewed Involuntary Hold Information 2 Hold Status: Legal Status: 96 Hour Hold Date/Time Hold Expires: 12/01/24 @2034 Attestations NPU 2 Medical Necessity Statement*: Inpatient hospitalization is medically necessary and the clinically appropriate intervention at this time. We will monitor/initiate medications and make changes as indicated. The patient's likely length of stay is 2-4 days. Coding Level of Care Code Acute Code for [facility] Diagnoses Depression F32.A Suicidal ideation R45.851 PTSD (post-traumatic stress disorder) F43.10
[2024-11-29 20:55] VITALS: BP 135/82; PULSE 84; RESP 18; TEMP 36.9; O2SAT 97
[2024-11-30 06:00] VITALS: BP 107/59; PULSE 88; RESP 17; TEMP 36.4; O2SAT 95
--- NOTE | 2024-11-30 12:23 | W.PM.NPUDCS ---
Diagnoses at Discharge Discharge Diagnosis 1. Depression: 2. Suicidal ideation: 3. PTSD (post-traumatic stress disorder): Reason for Visit Reason for Visit: SI Brief History: History of Present Illness Brian Painter is a 29 year old male presented to the emergency department with the following report: Chief Complaint: Psychiatric Symptoms Stated Complaint: SI Time Seen by Provider: 11/25/24 20:29 Source: patient and police Mode of arrival: ambulatory Limitations: no limitations History of Present Illness: 29-year-old male presents here with police for suicidal ideation. Patient states he has been very depressed he has a plan to kill himself by overdose. Patient is not currently on any psych meds denies any previous psych admissions he denies any previous suicide attempts. Associated symptoms: Reports depression and suicidal ideation. He was admitted to the neuropsychiatric unit for definitive treatment of those issues. He is unknown to [facility] psychiatry through inpatient or outpatient services. He presented to the emergency department with a negative UDS and an unremarkable BAL reporting: Chief complaint Presented to the hospital following a conflict with her mother and subsequent thoughts of self-harm, including consideration of overdosing on melatonin. History of the present complaint Reported an argument with mother after disclosing to someone that was carrying, which was misinterpreted as expressing suicidal intent. Upon returning home, mother became upset and physically searched for means of self-harm, leading to increased distress. Requested to be left alone, but mother persisted, resulting in further escalation. Decided to leave home, packed belongings, and went to the police station. Contemplated overdosing on melatonin prior to arrival at the police station, where was advised to seek evaluation for depression. Described onset of depression following the of sister in 2020, who by suicide. Found sister in the garage, which was a traumatic event. Since then, has experienced persistent sadness, feelings of helplessness, hopelessness, and worthlessness. Endorsed passive wishes, stating if I don't wake up tomorrow, that's fine, and reported several episodes of suicidal ideation, but denied any suicide attempts. Admitted to a single episode of self-injurious behavior, performed intentionally, but denied a pattern of such behavior. Reported chronic anxiety, characterized by constant worry and discomfort around other people. Described longstanding difficulty being around crowds and persistent fear that others may intend harm, including fear while sleeping that someone may be present to hurt. Endorsed paranoia, including checking behind doors and feeling that someone is out to get. Described visual hallucinations, specifically seeing sister sitting on a bed and shaking her head in disapproval, occurring the previous night and in other locations. Reported recurrent nightmares and flashbacks related to traumatic events, including reliving moments prior to discovering sister's . Noted development of compulsive behaviors since 2020, such as needing to arrange jez controllers in a specific order (PS3 to PS4), which causes significant distress if not maintained. Described lifelong difficulty with attention and focus, stating inability to concentrate even when desired. Noted need to move frequently, such as during latter-day services, to avoid distress. Reported history of speech therapy and placement in special education during childhood, with possible IEP. 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 Family history notable for sister with depression and possible addiction issues, and father described as a heavy drinker. Reported father's in 2001, possibly by suicide, but not certain. Denied tobacco, alcohol, cannabis, or other illicit drug use, and stated intent to keep body clean. No prior psychiatric hospitalizations, outpatient mental health treatment, or use of psychiatric medications. 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 Described family structure as youngest of multiple half-siblings on both maternal and paternal sides, with limited contact with paternal relatives. Mental health history Had onset of depressive symptoms following sister?s in May 2020, including persistent sadness, helplessness, hopelessness, passive suicidal ideation and occasional active suicidal thoughts without attempts. Denies prior psychiatric hospitalizations, outpatient counseling or therapy, and use of antidepressant, anxiolytic or other psychotropic medications. Reports chronic worry, social anxiety and paranoid ideation predating 2020. Notes emergence of ritualistic behaviors and need for order (e.g., arranging game controllers) since 2020. No history of self?injurious behavior beyond isolated incidents. Epilepsy in environmental communications specialist required bracing and walker use and speech therapy, but no diagnosed neurodevelopmental disorders. Social history Mother remains primary familial contact; parents were not together at . Identified four maternal half-siblings (two brothers, two sisters) and two paternal half-brothers, with self as the youngest of six. Denies tobacco or nicotine use, alcohol use, cannabis use, and other illicit drug use. Attempts to keep body clean. Hospital Course Hospital Course During the hospitalization, the patient had routine laboratory studies which were within normal limits except for a few outliers.? Additionally, there was a general medical evaluation which was also within normal limits and revealed no new acute processes.? At the time of discharge, lethality was denied and psychosis was resolving.? Mood and anxiety were well managed.? The patient endorsed a plan to avoid all drugs of abuse and follow up with the aftercare recommendations of the treatment team.? The patient was evaluated and deemed to be absent credible lethality and had achieved the maximum benefit from an inpatient hospitalization, and so was discharged. The patient completed RAADS and scored 149 which was strongly indicative of the patient having autistic spectrum disorder. The the patient was started on Prozac at and titrated up to a dose of 20 mg daily to target depression and anxiety. Abilify was added at 2 mg daily as well. Involuntary Hold Information Hold Status: Legal Status: 96 Hour Hold Date/Time Hold Expires: 12/01/24 @2034 Mental Status Exam MSE Comments: This is an obese , odd white male in hospital scrubs with fair grooming and fair eye contact. No abnormal involuntary motor movements were appreciated other than mild psychomotor retardation. He was cooperative with exam in mild distress. His speech was slightly decreased in rate and normal in volume and monotone in quality.. His mood was described as allright. His affect was mood congruent and brighter. His thought process was linear and logical. Thought content: Patient endorsed no suicidal or homicidal ideation, He denied paranoia and he did not appear to be responding to internal stimuli and denied auditory or visual hallucinations. He had reported anxiety in social situations. Attention and concentration were intact and memory appeared reliable but none were formally tested. He is alert and oriented x3. Insight and judgment appear fair and impulse control is fair. Discharge Data Studies Completed and Pending: Laboratory Results WBC 9.37 10^3/uL (3.2 9-11.43) 11/25/24 20:42 RBC 4.88 10^6/uL (3.8 5-5.65) 11/25/24 20:42 Hgb 14.10 g/dL (11.27 -16.99) 11/25/24 20:42 Hct 42.9 % (37-53) 11/25/24 20:42 MCV 87.9 fl (82-101) 11/25/24 20:42 MCH 28.9 pg (27-33) 11/25/24 20:42 MCHC 32.9 g/dL (30-55) 11/25/24 20:42 RDW 12.9 % (12.1-15.1 ) 11/25/24 20:42 Plt Count 294 10^3/cmm (157 -399) 11/25/24 20:42 MPV 10.9 fL (7.4-10.4 ) H 11/25/24 20:42 Neut % (Auto) 67.2 % 11/25/24 20:42 Lymph % (Auto) 20.8 % 11/25/24 20:42 Broome % (Auto) 9.6 % 11/25/24 20:42 Eos % (Auto) 1.7 % 11/25/24 20:42 Baso % (Auto) 0.4 % 11/25/24 20:42 Neut # (Auto) 6.29 10^3/uL (1.8 -7.7) 11/25/24 20:42 Lymph # (Auto) 2.0 10^3/uL (0.8- 4.8) 11/25/24 20:42 Broome # (Auto) 0.9 10^3/uL (0.2- 0.9) 11/25/24 20:42 Eos # (Auto) 0.2 10^3/uL (0.0- 0.8) 11/25/24 20:42 Baso # (Auto) 0.0 10^3/uL (0.0- 0.1) 11/25/24 20:42 Nucleated RBC % (a uto) 0 % 11/25/24 20: Nucleated RBCs # 0.0 /100WBC 11/25/24 20:42 Sodium 144 mmol/L (136-1 45) 11/25/24 20:42 Potassium 3.8 mmol/L (3.5-5 .1) 11/25/24 20:42 Chloride 105 mmol/L (98-10 7) 11/25/24 20:42 Carbon Dioxide 24 mmol/L (22-29) 11/25/24 20:42 Anion Gap 18.8 (5-19) 11/25/24 20:42 BUN 14 mg/dL (6-20) 11/25/24 20:42 Creatinine 0.9 mg/dL (0.7-1. 2) 11/25/24 20:42 GFR Calculation 100.5 mL/min (90- 130) 11/25/24 20:42 Glucose 110 mg/dL (65-115 ) 11/25/24 20:42 Calculated Osmolal ity 299 mOsm/kg (285- 295) H 11/25/24 20:42 Calcium 9.4 mg/dL (8.5-10 .5) 11/25/24 20:42 Total Bilirubin 0.2 mg/dL (0.15-1 .2) 11/25/24 20:42 AST 18 U/L (0-40) 11/25/24 20:42 ALT 30 U/L (0-41) 11/25/24 20:42 Alkaline Phosphata se 95 U/L (40-130) 11/25/24 20:42 Total Protein 7.9 g/dL (6.6-8.7 ) 11/25/24 20:42 Albumin 4.7 g/dL (3.5-5.2 ) 11/25/24 20:42 Globulin 3.2 g/dL (1.3-4.6 ) 11/25/24 20:42 Salicylates < 0.3 mg/dL (3-10 ) L 11/25/24 20:42 Urine Opiates Scre en Negative ng/mL (N egative) 11/25/24 20:40 Acetaminophen < 5.0 ug/mL (10-3 0) L 11/25/24 20:42 Ur Barbiturates Sc reen Negative ng/mL (N egative) 11/25/24 20:40 Ur Phencyclidine S crn Negative ng/mL (N egative) 11/25/24 20:40 Ur Amphetamines Sc reen Negative ng/mL (N egative) 11/25/24 20:40 U Benzodiazepines Scrn Negative ng/mL (N egative) 11/25/24 20:40 Urine Cocaine Scre en Negative ng/mL (N egative) 11/25/24 20:40 U Marijuana (THC) Screen Negative ng/mL (N egative) 11/25/24 20:40 Ethyl Alcohol < 10 mg/dL (0-10) 11/25/24 20:42 Vitals: Last Vital Signs Temp 97.6 F 11/30/24 06:00 Pulse 88 11/30/24 06:00 Resp 17 11/30/24 06:00 BP 107/59 11/30/24 06:00 Pulse Ox 95 11/30/24 06:00 O2 Del Method Room Air 11/30/24 06:00 O2 Flow Rate 2 11/27/24 14:00 Discharge Plan Discharge Patient Disposition: Home Condition: Stable Prescriptions: New aripiprazole 2 mg Tablet 2 mg PO DAILY 30 Days Qty: 30 1RF fluoxetine 20 mg Capsule 20 mg PO DAILY 30 Days Qty: 30 1RF Discharge Order = DC NOW: Discharge Order (Routine); Ordered 11/30/24 Ordered By: Scott Mendenhall Referrals: [facility] [Outside] Margoth Simmons MD [Primary Care Provider, Pediatrics] Discharge Diet: Usual diet Discharge Activity: Resume usual activity Patient Instructions: Opioid Safety, Patient Portal & Samantha Instructions Discharge Attestations NPU Time Spent in Discharge Care*: less than 30 min Specific Discharge Activities: Specific discharge activities: educating patient, discussing with therapeutic case manager/social workers/dc planners and documenting/other paperwork Coding Level of Care Code Acute Code for [facility] Fwd Diagnoses Depression F32.A Suicidal ideation R45.851 PTSD (post-traumatic stress disorder) F43.10
--- NOTE | 2024-11-30 12:37 | DCPLANNER ---
IMM completed on 11/30/2024 @ 1234. Pt was given a copy of his rights.
[2024-11-30 13:22] VITALS: BP 138/81; PULSE 85; RESP 18; TEMP 36.1; O2SAT 97
[2024-11-30 13:55] VITALS: BP 138/81; PULSE 85; RESP 18; TEMP 36.1; O2SAT 97
== END 2024-11-30 14:15 | disposition home or self-care (01) | DRG 881 ==
LOC: ER 21:51 → NP 21:51
PROVIDERS: Admitting Provider Psychiatry & Neurology Psychiatry; Emergency Provider Emergency Medicine; PCP Pediatrics Adolescent Medicine; Visit Provider Psychiatry & Neurology Psychiatry
DX: F32.A Depression, unspecified (principal); R45.851 Suicidal ideations; F43.10 Post-traumatic stress disorder, unspecified; E66.9 Obesity, unspecified; Z68.37 Body mass index [BMI] 37.0-37.9, adult; F41.9 Anxiety disorder, unspecified; F22 Delusional disorders; Z81.8 Family history of other mental and behavioral disorders
CPT/HCPCS: 36415; 80053; 80306; 80307; 85025; 97150; 97165; 99285; J9999